=== PATIENT | female | born 1985 | race Caucasian/White ===

== ENCOUNTER 2016-11-24 08:00 | Outpatient (CLI) | payer MEDICAID | END 2016-11-24 08:01 | disposition home or self-care (01) | DX: N39.0 Urinary tract infection, site not specified (principal) ==

== ENCOUNTER 2016-11-24 11:34 | Outpatient (CLI) | payer MEDICAID | END 2016-11-24 11:35 | disposition home or self-care (01) | DX: S92.511A Displaced fracture of proximal phalanx of right lesser toe(s), initial encounter for closed fracture (principal); M79.674 Pain in right toe(s) ==

== ENCOUNTER 2017-08-09 10:22 | Outpatient (CLI) | payer MEDICAID ==
--- NOTE | 2017-08-09 18:24 | Mammography Report ---
DIGITAL DIAGNOSTIC BILATERAL MAMMOGRAM: 08/09/2017 CLINICAL INDICATION: A 32-year-old nulliparous patient with right breast pain. The patient described the pain as diffuse throughout the upper half of the breast, so no marker could be placed. TECHNIQUE: Bilateral CC and MLO views, right true lateral view. The breasts demonstrate heterogeneously dense fibroglandular parenchyma bilaterally. No suspicious m asses, clustered microcalcifications, or regions of architectural distortion are identified. Specifi fang, no mammographic abnormality is appreciated in the upper right breast. IMPRESSION: NEGATIVE EXAMINATION. RECOMMENDATION: ROUTINE ANNUAL SCREENING, TO COMMENCE AT AGE 40, UNLESS OTHERWISE CLINICALLY INDICAT ED. BIRADS CATEGORY: 1, NEGATIVE. STANDARD QUALIFYING STATEMENTS 1. This examination was reviewed with the aid of Computed-Aided Detection (CAD). 2. A negative or benign imaging report should not delay biopsy if clinically suspicious findings are present. Consider surgical consultation if warranted. More than 5% of cancers are not identified b y imaging. 3. Dense breasts may obscure an underlying neoplasm. JOB #: [id number] EXT JOB #:[id number]
== END 2017-08-09 10:23 | disposition home or self-care (01) ==
LOC: DI 10:22
PROVIDERS: ATTEND Nurse Practitioner Family
DX: N64.4 Mastodynia (principal)
CPT/HCPCS: 77066

== ENCOUNTER 2018-01-20 11:01 | Outpatient (CLI) | payer MEDICAID ==
--- NOTE | 2018-01-20 13:27 | XRAY Report ---
COMPLETE LUMBAR SPINE: 01/20/2018 CLINICAL INDICATION: Incontinence. FINDINGS: AP, lateral, coned down, oblique views of the lumbar spine demonstrate mild levoscoliosis. There is left hemilumbarization of S1. There is no evidence of fracture or subluxation. The bowel gas pattern appears unremarkable. IMPRESSION: MILD LEVOSCOLIOSIS. TD: 01/20/2018 13:26
== END 2018-01-20 11:02 | disposition home or self-care (01) ==
LOC: DI.S 11:01
PROVIDERS: ATTEND Nurse Practitioner Family
DX: R32 Unspecified urinary incontinence (principal); M41.86 Other forms of scoliosis, lumbar region
CPT/HCPCS: 72110

== ENCOUNTER 2018-07-21 14:47 | Outpatient (CLI) | payer MEDICAID | END 2018-07-21 14:48 | disposition home or self-care (01) | LOC: LAB.F 14:47 | PROVIDERS: ATTEND Nurse Practitioner | DX: L65.9 Nonscarring hair loss, unspecified (principal) | CPT/HCPCS: 36415; 84443 ==

== ENCOUNTER 2018-08-30 12:22 | Outpatient (CLI) | payer MEDICAID | END 2018-08-30 12:23 | disposition home or self-care (01) | LOC: LAB.F 12:22 | PROVIDERS: ATTEND Nurse Practitioner Family | DX: M79.671 Pain in right foot (principal) | CPT/HCPCS: 36415; 84550 ==

== ENCOUNTER 2018-12-01 16:48 | Emergency (ER) | payer MEDICAID ==
[2018-12-01 16:57] VITALS: BP 137/75
[2018-12-01 17:32] LABS: MUDS CUTOFF CONCENTRATIONS CUTOFF CONC BELOW:
[2018-12-01 17:33] LABS: BASOPHILS # (AUTO) 0.1 10^3/uL (0.0-0.1); BASOPHILS % (AUTO) 0.7 %; EOSINOPHILS # (AUTO) 0.1 10^3/uL (0.0-0.7); EOSINOPHILS % (AUTO) 1.1 %; HGB - HEMOGLOBIN 14.7 g/dL (12.0-16.0); LYMPHOCYTES # (AUTO) 3.7 10^3/uL (1.5-3.5); LYMPHOCYTES % (AUTO) 36.4 %; MEAN CORPUSCULAR HEMOGLOBIN 27.1 pg (27.0-31.0); MEAN CORPUSCULAR HGB CONC 33.3 g/dL (32.0-36.0); MEAN CORPUSCULAR VOLUME 81.6 fL (81.0-99.0); MEAN PLATELET VOLUME 8.1 fL (7.9-10.8); MONOCYTES # (AUTO) 1.1 10^3/uL (0.0-1.0); MONOCYTES % (AUTO) 10.9 %; NEUTROPHILS # (AUTO) 5.1 10^3/uL (1.5-6.6); NEUTROPHILS % (AUTO) 50.9 %; PLT - PLATELET COUNT 268 10^3/uL (130-450); RED CELL DISTRIBUTION WIDTH 13.7 % (12.0-15.0); WHITE BLOOD COUNT 10.1 x10^3/uL (4.8-10.8)
[2018-12-01 17:36] LABS: BILIRUBIN,URINE NEGATIVE (NEGATIVE); GLUCOSE, URINE (UA) NEGATIVE (NEGATIVE); KETONES,URINE (UA) >=80 mg/dL (NEGATIVE); LEUKOCYTE ESTERASE, URINE NEGATIVE (NEGATIVE); NITRITE,URINE NEGATIVE (NEGATIVE); OCCULT BLOOD,URINE NEGATIVE (NEGATIVE); PH,URINE 5.5 PH (5.0-7.5); PROTEIN,URINE NEGATIVE (NEGATIVE); UROBILINOGEN,URINE 0.2 (NORMAL) E.U./dL (NORMAL)
[2018-12-01 17:40] LABS: CLARITY,URINE CLEAR (CLEAR); HCG UR QUAL NEGATIVE
[2018-12-01 17:45] LABS: INR 1.1 (0.8-1.2); PT - PROTHROMBIN TIME 12.7 secs (9.9-12.6)
[2018-12-01 17:48] LABS: AMPHETAMINE SCREEN,URINE NEGATIVE (NEGATIVE); BENZODIAZEPINES SCREEN, URINE NEGATIVE (NEGATIVE); COCAINE SCREEN URINE NEGATIVE (NEGATIVE); METHADONE SCREEN, URINE NEGATIVE (NEGATIVE); METHAMPHETAMINES SCREEN, URINE NEGATIVE (NEGATIVE); OPIATE SCREEN, URINE NEGATIVE (NEGATIVE); OXYCODONE SCREEN, URINE NEGATIVE (NEGATIVE); PROPOXYPHENE SCREEN, URINE NEGATIVE (NEGATIVE); TRICYCLIC ANTIDEPRESSANT,URINE NEGATIVE (NEGATIVE)
[2018-12-01 18:06] LABS: ACETAMINOPHEN < 10 ug/mL (10-30); ALBUMIN 4.6 g/dL (3.2-5.5); ALBUMIN/GLOBULIN RATIO 1.6 (1.0-2.2); ALKALINE PHOSPHATASE 60 IU/L (42-121); ALT ALANINE AMINOTRANSFERASE 28 IU/L (10-60); AST ASPARTATE AMINOTRANSFERASE 25 IU/L (10-42); BILIRUBIN,TOTAL 0.8 mg/dL (0.2-1.0); BUN - BLOOD UREA NITROGEN 11 mg/dL (6-20); CALCIUM 9.7 mg/dL (8.5-10.3); CARBON DIOXIDE - CO2 23 mmol/L (21-32); CHLORIDE 102 mmol/L (101-111); CK- CREATINE KINASE 135 IU/L (22-269); CREATININE 0.6 mg/dL (0.4-1.0); GFR - MDRD 115 (>89); GLUCOSE 86 mg/dL (70-100); LIPASE 57 U/L (22-51); SALICYLATE < 6.0 mg/dL; SODIUM 135 mmol/L (135-145); TOTAL PROTEIN 7.4 g/dL (6.7-8.2)
--- NOTE | 2018-12-01 18:34 | ED Physician Documentation ---
History of Present Illness - Stated complaint Stated Complaint: YELLOW SKIN/ODOR - Chief complaint Chief Complaint: General - Additonal information Additional information: 33-year-old female presents the emergency department for evaluation of yellowing of the skin and a change in body odor along with a strange taste in her mouth. The symptoms were noticed today. There is no yellowing of the eyes. The patient denies any chest pain, abdominal pain, vomiting, diarrhea, dysuria or hematuria. Symptoms are described as mild. No specific triggering symptoms. No relieving factors. Review of Systems Constitutional: denies: Fever, Chills Eyes: denies: Discharge Ears: denies: Ear pain Nose: denies: Congestion Throat: denies: Sore throat Cardiac: denies: Chest pain / pressure Respiratory: denies: Cough GI: denies: Abdominal Pain : denies: Dysuria, Unable to Void, Incontinent Skin: denies: Rash Musculoskeletal: denies: Neck pain, Back pain Neurologic: denies: Generalized weakness Immunocompromised: denies: Chemotherapy PD PAST MEDICAL HISTORY - Past Medical History Past Medical History: Yes GI: Cholelithiasis - Allergies Allergies/Adverse Reactions: Allergies Allergy/AdvReac Type Severity Reaction Status Date / Time morphine Allergy Hives Verified 12/01/18 16:58 Pertussis Vaccines Allergy Unknown Verified 12/01/18 16:58 - Social History Does the pt smoke?: No Smoking Status: Never smoker PD ED PE NORMAL - General General: Alert and oriented X 3, No acute distress - HEENT HEENT: Atraumatic, Moist mucous membranes, Pharynx benign, Other (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, 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, there is no yellowing of the sclera of the left eye and the left eye has normal range of motion) - Neck Neck: Supple, no meningeal sign - Cardiac Cardiac: RRR, Strong equal pulses - Respiratory Respiratory: No respiratory distress - Abdomen Abdomen: Soft, Non tender - Back Back: No CVA TTP - Derm Derm: Warm and dry, Other (There is no clear evidence of jaundice on examination, per the patient's report and family report her skin is a different tone than normal) - Extremities Extremities: No deformity - Neuro Neuro: Alert and oriented X 3, Normal speech - Psych Psych: Normal affect Results - Vitals Vitals: Vital Signs - 24 hr 12/01/18 16:54 Temperature 36.0 C L Heart Rate 65 Respiratory 14 Rate Blood Pressure 137/75 H O2 Saturation 100 Oxygen O2 Source Room air - Labs Labs: Laboratory Tests 12/01/18 12/01/18 12/01/18 17:25 17:25 17:25 WBC 10.1 RBC 5.40 Hgb 14.7 Hct 44.1 MCV 81.6 MCH 27.1 MCHC 33.3 RDW 13.7 Plt Count 268 MPV 8.1 Neut # (Auto) 5.1 Lymph # (Auto) 3.7 H [place] # (Auto) 1.1 H Eos # (Auto) 0.1 Baso # (Auto) 0.1 Absolute Nucleated RBC 0.01 Nucleated RBC % 0.1 PT 12.7 H INR 1.1 APTT 30.6 Sodium 135 Potassium 3.4 L Chloride 102 Carbon Dioxide 23 Anion Gap 10.0 BUN 11 Creatinine 0.6 Estimated GFR (MDRD) 115 Glucose 86 Calcium 9.7 Total Bilirubin 0.8 AST 25 ALT 28 Alkaline Phosphatase 60 Total Creatine Kinase 135 Total Protein 7.4 Albumin 4.6 Globulin 2.8 Albumin/Globulin Ratio 1.6 Lipase 57 H TSH Urine Color Urine Clarity Urine pH Ur Specific Mun[place] Urine Protein Urine Glucose (UA) Urine Ketones Urine Occult Blood Urine Nitrite Urine Bilirubin Urine Urobilinogen Ur Leukocyte Esterase Ur Microscopic Review Urine Culture Comments Urine HCG, Qual Salicylates < 6.0 Urine Opiates Screen Ur Oxycodone Screen Urine Methadone Screen Ur Propoxyphene Screen Acetaminophen < 10 L Ur Barbiturates Screen Ur Tricyclics Screen Ur Phencyclidine Scrn Ur Amphetamine Screen U Methamphetamines Scrn U Benzodiazepines Scrn Urine Cocaine Screen U Cannabinoids Screen Ethyl Alcohol < 5.0 12/01/18 12/01/18 12/01/18 17:25 17:25 17:25 WBC RBC Hgb Hct MCV MCH MCHC RDW Plt Count MPV Neut # (Auto) Lymph # (Auto) [place] # (Auto) Eos # (Auto) Baso # (Auto) Absolute Nucleated RBC Nucleated RBC % PT INR APTT Sodium Potassium Chloride Carbon Dioxide Anion Gap BUN Creatinine Estimated GFR (MDRD) Glucose Calcium Total Bilirubin AST ALT Alkaline Phosphatase Total Creatine Kinase Total Protein Albumin Globulin Albumin/Globulin Ratio Lipase TSH 2.47 Urine Color YELLOW Urine Clarity CLEAR Urine pH 5.5 Ur Specific Mun[place] 1.025 Urine Protein NEGATIVE Urine Glucose (UA) NEGATIVE Urine Ketones >=80 H Urine Occult Blood NEGATIVE Urine Nitrite NEGATIVE Urine Bilirubin NEGATIVE Urine Urobilinogen 0.2 (NORMAL) Ur Leukocyte Esterase NEGATIVE Ur Microscopic Review NOT INDICATED Urine Culture Comments NOT INDICATED Urine HCG, Qual NEGATIVE Salicylates Urine Opiates Screen NEGATIVE Ur Oxycodone Screen NEGATIVE Urine Methadone Screen NEGATIVE Ur Propoxyphene Screen NEGATIVE Acetaminophen Ur Barbiturates Screen NEGATIVE Ur Tricyclics Screen NEGATIVE Ur Phencyclidine Scrn NEGATIVE Ur Amphetamine Screen NEGATIVE U Methamphetamines Scrn NEGATIVE U Benzodiazepines Scrn NEGATIVE Urine Cocaine Screen NEGATIVE U Cannabinoids Screen NEGATIVE Ethyl Alcohol PD MEDICAL DECISION MAKING - ED course ED course: The patient has no icterus on exam and her skin does not appear to be jaundiced. The family reports that her skin tone is different and more yellow than normal. The patient's laboratory workup does not reveal any significant abnormality to clearly explain her symptoms. The patient has no pain on examination and currently there is no findings that would necessitate imaging in the emergency department. Presently, the patient appears safe and appropriate for discharge and further workup as an outpatient. I discussed the findings and plan with the family who understand and agree to the plan. I discussed warning signs and recommended returning to the emergency department immediately for any worsening or any concerns Departure - Departure Disposition: 01 Home, Self Care Clinical Impression: Yellow skin Condition: Good Comments: Please follow-up with your primary care physician for further workup and management of your symptoms. Please return to the emergency department immediately for any worsening or any concerns Discharge Date/Time: 12/01/18 18:45
== END 2018-12-01 18:45 | disposition home or self-care (01) ==
LOC: ED 16:48
DX: R23.8 Other skin changes (principal); R46.89 Other symptoms and signs involving appearance and behavior; Z97.0 Presence of artificial eye
CPT/HCPCS: 36415; 80053; 80306; 80307; 80320; 80329; 81001; 81003; 81025; 82550; 83690; 84443; 85025; 85610; 85730; 87086; 93005; 99282; 99283

== ENCOUNTER 2018-12-06 11:23 | Outpatient (CLI) | payer MEDICAID ==
[2018-12-06 18:20] LABS: BASOPHILS % (AUTO) 0.4 %; EOSINOPHILS # (AUTO) 0.1 10^3/uL (0.0-0.7); EOSINOPHILS % (AUTO) 0.9 %; HGB - HEMOGLOBIN 13.8 g/dL (12.0-16.0); LYMPHOCYTES # (AUTO) 2.5 10^3/uL (1.5-3.5); MEAN CORPUSCULAR HEMOGLOBIN 27.1 pg (27.0-31.0); MEAN CORPUSCULAR HGB CONC 32.8 g/dL (32.0-36.0); MEAN CORPUSCULAR VOLUME 82.7 fL (81.0-99.0); MEAN PLATELET VOLUME 8.6 fL (7.9-10.8); MONOCYTES # (AUTO) 0.6 10^3/uL (0.0-1.0); MONOCYTES % (AUTO) 10.1 %; NEUTROPHILS # (AUTO) 2.9 10^3/uL (1.5-6.6); NEUTROPHILS % (AUTO) 47.6 %; PLT - PLATELET COUNT 240 10^3/uL (130-450); RED BLOOD COUNT 5.08 10^6/uL (4.20-5.40); RED CELL DISTRIBUTION WIDTH 14.1 % (12.0-15.0); WHITE BLOOD COUNT 6.2 x10^3/uL (4.8-10.8)
[2018-12-06 18:30] LABS: % IRON SATURATION 30 % (20-50); ALBUMIN 4.2 g/dL (3.2-5.5); ALBUMIN/GLOBULIN RATIO 1.6 (1.0-2.2); ALKALINE PHOSPHATASE 42 IU/L (42-121); ALT ALANINE AMINOTRANSFERASE 32 IU/L (10-60); AST ASPARTATE AMINOTRANSFERASE 27 IU/L (10-42); BILIRUBIN,TOTAL 1.2 mg/dL (0.2-1.0); BUN - BLOOD UREA NITROGEN 8 mg/dL (6-20); CALCIUM 9.2 mg/dL (8.5-10.3); CARBON DIOXIDE - CO2 24 mmol/L (21-32); CHLORIDE 104 mmol/L (101-111); CHOL/HDL RATIO 4.4 (<4.4); CHOLESTEROL 198 mg/dL; CREATININE 0.5 mg/dL (0.4-1.0); GFR - MDRD 142 (>89); GLUCOSE 87 mg/dL (70-100); HDL CHOLESTEROL 45 mg/dL; IRON 106 ug/dL (28-170); LDL CHOLESTEROL,CALCULATED 134 mg/dL; SODIUM 137 mmol/L (135-145); TOTAL IRON BINDING CAPACITY 354 ug/dL (250-450); TOTAL PROTEIN 6.9 g/dL (6.7-8.2); TRANSFERRIN 253 mg/dL (192-382); VLDL CHOLESTEROL 19 mg/dL
[2018-12-07 13:12] LABS: HEPATITIS B SURFACE ANTIGEN NON-REACTIVE (NON-REACTIVE); HEPATITIS C ANTIBODY NON-REACTIVE (NON-REACTIVE)
== END 2018-12-06 11:24 | disposition home or self-care (01) ==
LOC: LAB.F 11:23
PROVIDERS: ATTEND Nurse Practitioner Family
DX: R17 Unspecified jaundice (principal)
CPT/HCPCS: 36415; 80053; 80061; 81332; 81599; 82728; 83540; 83721; 84466; 85025; 85660; 86709; 86803; 87340

== ENCOUNTER 2018-12-21 17:28 | Outpatient (CLI) | payer MEDICAID ==
--- NOTE | 2018-12-21 22:50 | Ultrasound Report ---
Reason: JAUNDICE Procedure Date: 12/21/2018 Accession Number: [id number] / [id number] Procedure: US - Abdomen Limited CPT Code: FULL RESULT: EXAM: ABDOMEN ULTRASOUND LIMITED, RUQ EXAM DATE: 12/21/2018 05:58 PM. CLINICAL HISTORY: JAUNDICE. COMPARISON: None. TECHNIQUE: Real-time scanning was performed with static images obtained. FINDINGS: Liver: Unremarkable echotexture. Right lobe is 17.8 cm. Main portal vein flow: Hepatopetal. Gallbladder: Status post cholecystectomy. Biliary System: CBD measures 4 mm. No intrahepatic biliary ductal dilatation. Other: Right kidney demonstrates no hydronephrosis. Pancreas obscured by overlying bowel gas. IMPRESSION: No acute sonographic abnormality status post cholecystectomy. RADIA
== END 2018-12-21 17:29 | disposition home or self-care (01) ==
LOC: DI 17:28
PROVIDERS: ATTEND Nurse Practitioner Family
DX: R17 Unspecified jaundice (principal); Z90.49 Acquired absence of other specified parts of digestive tract
CPT/HCPCS: 76705

== ENCOUNTER 2022-08-10 10:13 | Outpatient (CLI) | payer MEDICAID ==
--- NOTE | 2022-08-11 09:26 | Mammography Report ---
BILATERAL DIGITAL DIAGNOSTIC MAMMOGRAM 3D/2D: 08/10/2022 CLINICAL: Palpable right breast lump by physician. Diffuse right breast pain. Comparison is made to exam dated: 08/09/2017 mammogram - [facility]. Both breasts are heterogeneously dense, which may obscure small masses (category c / 51-75% glandula r tissue). No significant masses, calcifications, or other findings are seen in either breast. IMPRESSION: INCOMPLETE: NEEDS ADDITIONAL IMAGING EVALUATION There is no abnormality seen in the right breast to correspond with the area of clinical concern and clinician palpated abnormality at 6 o'clock, however, an ultrasound is recommended for further evalua tion and is scheduled to immediately follow this examination. There is no abnormality seen in the right breast to correspond with the area of clinical concern and pain involving the outer aspect of the breast from the nipple to the axilla, however, an ultrasound i s recommended for further evaluation and is scheduled to immediately follow this examination. Based on the Tyrer Cuzick model (a risk assessment model) the patients lifetime risk is 14.3% and he r 10 year risk is 1.3%. According to the ACR, ACS, and NCCN guidelines, an annual breast MRI exam jennifer ng with mammogram is recommended if the patients lifetime risk is 20% or greater. This exam was interpreted at Station ID: [id number]. NOTE: For mammograms, a report in lay terms will be sent to the patient. Approximately 15% of breast malignancies will not be visualized mammographically. In the management of a palpable breast mass, a negative mammogram must not discourage biopsy of a clinically suspicious lesion. Electronically Signed By: Rogelio Camacho M.D. aty/:08/10/2022 11:17:53 ACR BI-RADS Category 0: Incomplete 3340F PARENCHYMAL PATTERN: (D) - The breast(s) demonstrate(s) heterogeneously dense fibroglandular parmavis khan. BI-RADS CATEGORY: (0) - 0 Ultrasound [id number] Immediate follow-up LATERALITY: (R)
--- NOTE | 2022-08-11 09:26 | Ultrasound Report ---
LIMITED ULTRASOUND OF RIGHT BREAST AND AXILLA: 08/10/2022 CLINICAL: Palpable right breast lump by physician. Comparison is made to exams dated: 08/10/2022 mammogram and 08/09/2017 mammogram - [facility]. Real-time ultrasound of the right breast 6-9 o'clock, and axilla regions was performed. Browning scale i mages of the real-time examination were reviewed. There is a 0.3 cm x 0.2 cm x 0.2 cm wider than tall oval cyst in the right breast at 6 o'clock anteri or depth 3 cm from the nipple. This oval cyst is anechoic with a well-defined boundary. This possib ly correlates with clinician reported palpable finding at 6 o'clock. Color flow imaging demonstrates that there is no vascularity present. No significant abnormalities were seen sonographically in the right axilla. IMPRESSION: BENIGN There is no sonographic evidence of malignancy. The 0.3 cm x 0.2 cm x 0.2 cm wider than tall oval simple cyst in the right breast is benign. There is no abnormality seen in the right breast to correspond with the area of clinical concern and pain in the outer aspect, however, recommend clinical follow up for persistent or worsening symptoms, or development of any clinically suspicious findings. Recommend initiating routine screening mammograms at age 40. Findings and recommendations were conveyed to the patient during today's evaluation. This exam was interpreted at Station ID: [id number]. Electronically Signed By: Rogelio Camacho M.D. aty/:08/10/2022 11:36:34 Ultrasound BI-RADS: 2 Benign BI-RADS CATEGORY: (2) - 2 Mammogram [id number] 3 year screening LATERALITY: (B)
== END 2022-08-10 10:14 | disposition home or self-care (01) ==
LOC: DI 10:13
PROVIDERS: ATTEND Physician Assistant Medical
DX: N63.15 Unspecified lump in the right breast, overlapping quadrants (principal); N60.01 Solitary cyst of right breast